=== PATIENT | female | born 1960 | race Caucasian/White ===

== ENCOUNTER 2025-01-17 02:38 | Emergency (ER) | payer MEDICAID ==
[~2025-01-17] VITALS: Ht 170.2 cm; Wt 66.0 kg
[2025-01-17 02:55] VITALS: TEMP 36.9; O2SAT 100
[2025-01-17 02:58] VITALS: O2SAT 99
[2025-01-17 03:45] VITALS: BP 133/97; PULSE 68; RESP 18
[2025-01-17] MEDS: LIDOCAINE 5% PATCH TOP SCH (03:45)
[2025-01-17] MEDS: CYCLOBENZAPRINE 10MG TABLET PO ONE (03:45)
[2025-01-17] MEDS: KETOROLAC 15MG/ML VIAL IM ONE (03:45)
[2025-01-17] MEDS ORDERED: NAPR-1176 MT (05:06)
[2025-01-17] MEDS ORDERED: LIDO-53 TP (05:06)
[2025-01-17] MEDS ORDERED: CYCL5TAB3 MT (05:06)
== END 2025-01-17 05:30 | disposition home or self-care (01) ==
LOC: ER 03:40
DX: M79.2 Neuralgia and neuritis, unspecified (principal); Z79.1 Long term (current) use of non-steroidal anti-inflammatories (NSAID)
CPT/HCPCS: 99283; 96372; J1885